=== PATIENT | female | born 1960 | race Hispanic/Latino ===

== ENCOUNTER 2022-06-17 07:03 | Day surgery (SDC) | payer OTHER ==
[2022-06-15 13:25] LABS: BASOPHILS % (AUTO) 0.8 % (0.0-5.0); EOSINOPHILS % (AUTO) 2.6 % (0.0-8.0); HEMATOCRIT 41.8 % (36-48); LYMPHOCYTES % (AUTO) 25.6 % (21.0-51.0); MEAN CORPUSCULAR HEMOGLOBIN 28.5 pg (27.0-33.0); MEAN CORPUSCULAR HGB CONC 33.5 g/dL (32.0-36.0); MONOCYTES % (AUTO) 6.7 % (3.0-13.0); NEUTROPHILS % (AUTO) 64.2 % (40.0-77.0); PLATELET COUNT (AUTO) 316 K/uL (130-400); RED BLOOD CELL COUNT(AUTO) 4.92 MIL/uL (4.00-5.50); RED CELL DISTRIBUTION WIDTH 14.2 % (11.0-15.5); WHITE BLOOD COUNT (AUTO) 8.7 K/uL (4.8-10.8)
[2022-06-15 13:33] LABS: APPEARANCE,URINE Clear (CLEAR); BILIRUBIN,URINE Negative (NEGATIVE); COLOR,URINE Yellow (YELLOW); GLUCOSE, URINE (UA) Negative (NEGATIVE); KETONES,URINE Negative (NEGATIVE); LEUKOCYTE ESTERASE ,URINE Moderate (NEGATIVE); NITRATE,URINE Negative (NEGATIVE); OCCULT BLOOD,URINE Negative (NEGATIVE); PH,URINE 6.5 (5.0-8.0); PROTEIN,URINE Negative (NEGATIVE)
[2022-06-15 13:49] LABS: BACTERIA,URINE Rare /HPF (None Seen); RBC,URINE 0-1 /HPF (0-1); SQUAMOUS EPITHELIAL CELL,UR Rare /HPF (0-2); WBC,URINE 0-1 /HPF (0-1)
[2022-06-15 13:50] LABS: CREATININE 0.8 mg/dL (0.5-1.5); POTASSIUM 3.8 mmol/L (3.5-5.1)
[2022-06-15 13:51] LABS: INR 0.97 (0.85-1.15); PROTHROMBIN TIME 10.6 SEC (9.6-11.6)
[2022-06-15 13:52] LABS: PARTIAL THROMBOPLASTIN TIME 30.2 SEC (26.3-35.5)
[2022-06-15 13:55] LABS: B-TYPE NATRIURETIC PEPTIDE 7 pg/mL (0-100)
[2022-06-16 09:59] VITALS: BP 145/91
[~2022-06-17] VITALS: Ht 152.4 cm; Wt 76.9 kg
[2022-06-17] VITALS (8 sets, daily range): BP systolic 96–140; BP diastolic 56–77
[~2022-06-17 07:03] MED LIST: 0.9% NACL 500ML IV.SOLN 500 ML IV SCH; AEC81 PO; ATOR20TA65 PO; GABA-529 PO; GLYB2.5T6 PO; IBUP-2070 PO; ISOS30TA92 PO; LORA10TA7 PO; METF-444 PO; METO-391 PO; OMEP40CA21 PO
[2022-06-17] MEDS ORDERED: 0.9%NACL 1000ML 1,000 ML IV ONE (08:13)
[2022-06-17] MEDS ORDERED: LEVOFLOXACIN 500 MG/D5W 100 ML 100 ML ONE (10:41)
[2022-06-17] MEDS ORDERED: IOHEXOL 350 MG/ML 100ML INFUS..BTL IV ONE (11:34)
[2022-06-17] MEDS ORDERED: HEPARIN 10,000 UNIT/10ML (1,000 UNIT/ML) VIAL ONE (11:34)
[2022-06-17] MEDS ORDERED: NITROGLYCERIN 50MG VIAL ONE (11:34)
[2022-06-17] MEDS ORDERED: LIDOCAINE HCL 400MG/20ML VIAL ONE (11:35)
[2022-06-17] MEDS ORDERED: MIDAZOLAM HCL 1 MG/ML 2ML VIAL ONE (11:35)
[2022-06-17] MEDS ORDERED: FENTANYL CITRATE PF 50 MCG/1 ML 2ML VIAL ONE (11:35)
[2022-06-17] MEDS ORDERED: 0.9%NACL 1000ML 1,000 ML IV SCH (12:30)
[2022-06-17] MEDS ORDERED: GLUCAGON 1MG KIT 1 MG ML IM PRN (12:30)
[2022-06-17] MEDS ORDERED: METOPROLOL TARTRATE 1 MG/ML 5ML VIAL IV PRN (12:30)
[2022-06-17] MEDS ORDERED: DEXTROSE 50%-WATER 50 ML DISP.SYRIN IV PRN (12:30)
== END 2022-06-17 17:00 | disposition home or self-care (01) ==
LOC: DAH 07:03
PROVIDERS: ATTEND Internal Medicine Cardiovascular Disease
DX: I25.118 Atherosclerotic heart disease of native coronary artery with other forms of angina pectoris (principal); I10 Essential (primary) hypertension; E11.40 Type 2 diabetes mellitus with diabetic neuropathy, unspecified; E78.5 Hyperlipidemia, unspecified; I87.2 Venous insufficiency (chronic) (peripheral); E11.51 Type 2 diabetes mellitus with diabetic peripheral angiopathy without gangrene; Z98.890 Other specified postprocedural states; Z79.01 Long term (current) use of anticoagulants; Z79.82 Long term (current) use of aspirin; Z79.84 Long term (current) use of oral hypoglycemic drugs
CPT/HCPCS: 36415; 71045; 80048; 81001; 82948; 83880; 85025; 85610; 85730; 87077; 87088; 87186; 93005; 93458; 99156; 99157; A4606; C1894; J1644; J1956; J2250; J3010; J3490; J7030; Q9967